=== PATIENT | female | born 1965 | race Two or more races ===

== ENCOUNTER 2019-11-30 15:11 | Inpatient (IN) | payer OTHER ==
[~2019-11-30] VITALS: Ht 160 cm; Wt 63.9 kg
[2019-11-30 16:06] LABS: Basophils # (auto) 0 uL; Eosinophils # (auto) 0 uL; Hemoglobin 11.8 g/dL (12.2-16.2); Monocytes # (auto) 0.5 uL
[2019-11-30 16:07] LABS: Hematocrit 35.8 % (36.0-46.0); Lymphocytes # (auto) 0.6 uL; Lymphocytes % (auto) 5.3 % (10.0-50.0); Mean Corpuscular Hgb Conc. 32.8 g/dL (32.0-36.0); Mean Corpuscular Volume 79.2 fL (80.0-100.0); Neutrophils # (auto) 9.4 uL; Neutrophils % (auto) 89.7 % (37.0-80.0); Platelet Count (auto) 163 10^3/uL (140-450); Red Blood Cells 4.52 10^6/uL (4.0-5.20); Red Cell Distribution Width 14.7 % (11.8-14.3); White Blood Cell 10.5 10^3/uL (4.4-10.8)
[2019-11-30 16:25] LABS: Albumin 2.9 g/dL (3.4-5.0); Anion Gap 11 (5-15); Blood Alcohol < 3.0 mg/dL (0-5); Blood Urea Nitrogen 17 mg/dL (7-18); Carbon Dioxide 23 mmol/L (21-32); Chloride 108 mmol/L (98-107); Glucose 132 mg/dL (74-106); Magnesium 1.4 mg/dL (1.6-2.6); Potassium 3.5 mmol/L (3.5-5.1); Sodium 142 mmol/L (136-145)
[2019-11-30 16:27] LABS: Alanine Aminotransferase 18 U/L (13-56); Aspartate Aminotransferase 17 U/L (15-37); BUN/Creatinine Ratio 28.3; GFR African American 134 mL/min; GFR Non-African American 111 mL/min
[2019-11-30 16:28] LABS: Acetaminophen 2.2 ug/mL (10-30); Salicylate < 1.7 mg/dL (2.8-20.0)
[2019-11-30 16:31] LABS: Alkaline Phosphatase 99 U/L (45-117); Bilirubin, Total 0.5 mg/dL (0.2-1.0); Total Protein 6.1 g/dL (6.4-8.2)
[2019-11-30 16:45] LABS: Urine Amorphous Crystal FEW /hpf (None Seen); Urine Bacteria NONE SEEN /hpf (None Seen); Urine Blood Negative /uL (Negative); Urine Hyaline Cast FEW /lpf (0 - 2); Urine Mucus FEW (None Seen); Urine Specific Gravity 1.028 (1.001-1.035); Urine WBC 2 /hpf (0 - 5)
[2019-11-30 17:04] LABS: Alcohol, Urine < 3.0 mg/dL (0-5); Amphetamine Screen, Urine NEGATIVE (NEGATIVE); Barbiturate Scree,Urine NEGATIVE (NEGATIVE); Benzodiazephine Screen, Urine POSITIVE (NEGATIVE); Cannabinoid Screen, Urine NEGATIVE (NEGATIVE); Cocaine Screen, Urine NEGATIVE (NEGATIVE); Opiate Scree,Urine NEGATIVE (NEGATIVE); Phencyclidine Screen, Urine NEGATIVE (NEGATIVE)
[2019-11-30] MEDS ORDERED: SODIUM CHLORIDE 0.9% 1,000 ML IVB ONE (17:32)
[2019-11-30] MEDS ORDERED: SUCCINYLCHOLINE CHLORIDE 20 MG/ML 10ML VIAL IV ONE ×3 (19:25→21:45)
[2019-11-30] MEDS ORDERED: ETOMIDATE (2MG/ML) 20ML VIAL IV ONE ×3 (19:25→21:45)
[2019-11-30] MEDS ORDERED: MIDAZOLAM DRIP 50 mg/50mL 50 ML IV ONE (20:07)
[2019-11-30] MEDS: MIDAZOLAM DRIP 50 mg/50mL 50 ML IV SCH (20:14)
[2019-11-30] MEDS ORDERED: MORPHINE SULF INJ 2 MG/ML SYRINGE 1ML IV PRN (21:00)
[2019-11-30] MEDS ORDERED: ONDANSETRON HCL 4 MG/2 ML VIAL IV PRN (21:00)
[2019-11-30] MEDS ORDERED: NITROGLYCERIN 0.4 MG SL TAB SL PRN (21:00)
[2019-11-30] MEDS ORDERED: PANTOPRAZOLE 40 MG/10 ML VIAL INJ IV ONE (21:00)
[2019-11-30 21:06] VITALS: BP 167/93
[2019-11-30] MEDS: SODIUM CHLORIDE 0.9% 1,000 ML IV SCH (21:27)
[2019-12-01] VITALS (86 sets, daily range): BP systolic 84–171; BP diastolic 50–103
[2019-12-01] MEDS ORDERED: ALBUMIN 5% 250 ML IV ONE (01:15)
--- NOTE | 2019-12-01 02:53 | NUR ---
REPORT RECEIVED FROM COLLAR WORKER. ADMITTED AN OVERDOSE ON SEROQUEL AND TRAZADONE. ONLY ON VERSED FOR SEDATION. ETT TO VENTILATOR. OGT TO LIS. STEPHENS IN PLACE. 2 PERIPHERAL IVS. MAINTENANCE IV RATE 80CC/HR.
[2019-12-01] MEDS ORDERED: ACETAMINOPHEN 650 MG RECT SUPP PR ONE (03:15)
--- NOTE | 2019-12-01 03:45 | NUR ---
PATIENT ARRIVED FROM THE ER. PLACED IN BED. PLACED ON BEDSIDE MONITOR. BP CYCLING Q 15. TEMP 99.7. HAND STONE POLISHER REPORTED THE TEMPERATURE WAS ELEVATED AND THAT SHE HAD JUST GIVEN TYLENOL. SINUS TACHYCARDIA 107, NO ECTOPY SBP 128. PATIENT'S EYES ARE OPEN AND MOVING EXTREMITIES. INCREASED THE VERSED FROM 4 MG TO 6MG/HR. ETT TO VENTILATOR. OGT SALEM SUMP TO LIS. SCDS ON. NO SKIN ISSUES. PERIPHERAL IV X2 SHOW NO REDNESS OR SWELLING. POISON CONTROL INVOLVED .QRS .08, QT .28
[2019-12-01] MEDS: MIDAZOLAM DRIP 50 mg/50mL 50 ML IV SCH (04:19)
--- NOTE | 2019-12-01 05:00 | NUR ---
ADMISSION PACKET WITH FAMILY
[2019-12-01] MEDS ORDERED: QUET50TA PO ×2 (05:21)
[2019-12-01] MEDS ORDERED: TRAZ-181 PO (05:21)
--- NOTE | 2019-12-01 06:00 | NUR ---
NSR WITH NO ECTOPY. HR BELOW 100. SBP DROPPED TO 88. DECREASED THE VERSED TO 4MG/HR. FOLLOWING THE VENTILATOR. NGT DRAINED 100CC OF GOLD/ORANGE COLOR LIQUID. SUCTIONED ETT FOR A SMALL AMOUNT OF CREAMY SECRETIONS WITH A BLOOD TINGE. REPOSITIONED TO HER LEFT SIDE.
--- NOTE | 2019-12-01 06:21 | NUR ---
SBP INCREASED AFTER VERSED CHANGE.
[2019-12-01 06:52] LABS: Basophils # (auto) 0 uL; Eosinophils # (auto) 0 uL; Monocytes # (auto) 0.6 uL; Red Blood Cells 4.08 10^6/uL (4.0-5.20); Red Cell Distribution Width 14.6 % (11.8-14.3); White Blood Cell 11.4 10^3/uL (4.4-10.8)
[2019-12-01 06:55] LABS: Basophils % (auto) 0.1 % (0.0-2.0); Hematocrit 31.8 % (36.0-46.0); Hemoglobin 10.5 g/dL (12.2-16.2); Lymphocytes # (auto) 0.5 uL; Lymphocytes % (auto) 4.3 % (10.0-50.0); Mean Corpuscular Hemoglobin 25.7 pg (28.0-32.0); Mean Corpuscular Hgb Conc. 32.9 g/dL (32.0-36.0); Monocytes % (auto) 5.3 % (0.0-12.0); Neutrophils # (auto) 10.3 uL; Neutrophils % (auto) 90.3 % (37.0-80.0); Platelet Count (auto) 133 10^3/uL (140-450)
[2019-12-01 07:08] LABS: Potassium 3.5 mmol/L (3.5-5.1)
[2019-12-01 07:10] LABS: BUN/Creatinine Ratio 19.2; Calcium 8.3 mg/dL (8.5-10.1)
--- NOTE | 2019-12-01 07:30 | NUR ---
OPENING NOTE Report received from Sherice WOMACK, care assumed. Initial physical assessment performed. No pain or distress noted at this time. Patient is intubated on ventilator, tolerating well. Patient withdrawals from painful stimuli. Versed for sedation in use. Pulses palpable bilaterally. SCD's on bilateral lower extremities. Lungs clear anteriorly. Abdomen is soft, nontender. OGT patent. See skin/wound assessment. Patient repositioned in bed, heels elevated. Bed locked in lowest position, alarms in place. Will continue to monitor.
--- NOTE | 2019-12-01 08:00 | NUR ---
SEIZURE PRECAUTIONS Patient assessed and determined to be at risk for seizure activity. Bed rails padded, parts fabricator remains on patient.
--- NOTE | 2019-12-01 08:18 | NUR ---
TEMPERATURE Oral temperature registering . Blankets removed and room temperature decreased. Rectal probe placed. Rectal temperature. Cooling measures initiated. Ice packed applied to trunk. Will continue to monitor.
--- NOTE | 2019-12-01 08:37 | NUR ---
VISITOR Patient son and grandson at bedside. Updated on patient status and plan of care. All questions and concerns addressed.
--- NOTE | 2019-12-01 09:26 | NUR ---
TEMPERATURE REASSESSMENT Rectal temperature now 99.0. Will continue to monitor.
[2019-12-01] MEDS: SODIUM CHLORIDE 0.9% 1,000 ML IV SCH ×2 (09:35→22:00)
[2019-12-01] MEDS: ENOXAPARIN SOD 40 MG/0.4 ML SYRINGE SC SCH (09:36)
[2019-12-01] MEDS: PANTOPRAZOLE 40 MG/10 ML VIAL INJ IV SCH (09:36)
--- NOTE | 2019-12-01 09:46 | NUR ---
POISON CONTROL Called for update on EKG and labs.
--- NOTE | 2019-12-01 11:00 | NUR ---
WOUND CARE CONSULT Wound care nurse at bedside for skin assessment.
--- NOTE | 2019-12-01 11:00 | NUR ---
WOUND CARE NOTE: Wound care in to see patient due intubation status putting patient to high risk for skin breakdown. Patient is 54 y/o female with admitting diagnosis of Toxic Encephalopathy. Patient is resting in ICU bed in Rm. 111. She's intubated, sedated and mechanically ventilated. Patient appears to be in no pain using Cortez Parmar Faces Pain Scale. Skin assessment done with the assistance of patient's nurse, VU Lim. No open wound noted other than intact linear redness to patient's Rt anterior thigh measuring 1x12cm, skin is blanchable, clean and dry. No pressure injury noted. Natasha care given and cleansed patient's Rt thigh with mild soap and water,patted dry and applied Z Guard cream as preventative per MD order.Patient's family at bedside reported that patient is active and independent prior this hospitalization. They reported that redness to R thigh could be from patient's wearing a "tight shorts". Repositioned patient for comfort facing her L t side, redistributed pressure points with pillows. Patient tolerated well. VU Lim at bedside. RECOMMENDATION: Nursing to continue with BID/PRN cleaning and application of Z Guard cream to sacral,buttocks and Rt thigh reddened area per MD order,frequent turning and repositioning schedule as condition permits,redistribute pressure points with pillows, continue monitoring by wound care while patient is mechanically ventilated. Addendum: 12/01/19 at 1518 by Lidia Pablo RN Amended: Links added.
--- NOTE | 2019-12-01 11:58 | NUR ---
MD VISIT: PCP at bedside assessing patient and speaking with family regarding patient status and plan of care. Chayo WOMACK at bedside to translate.
--- NOTE | 2019-12-01 12:00 | NUR ---
SEDATION VACATION Versed drip titrated off per MD request to assess neuro status.
--- NOTE | 2019-12-01 13:23 | NUR ---
MD VISIT: MANUFACTURER at bedside assessing patient and speaking with family regarding patients past medical history and discussing plan of care.
--- NOTE | 2019-12-01 14:05 | NUR ---
ORAL CARE Patient moved arms and facial grimacing with repositioning and oral care. Patient not attempting to move or open eyes on own without stimuli. Oral secretions pink/coles with foul odor. Oral care performed. Patient tolerated fair.
--- NOTE | 2019-12-01 15:22 | NUR ---
I faxed transfer order to [facility].
--- NOTE | 2019-12-01 16:30 | NUR ---
0086 12/01/19 Contacted insurance compliance analyst Gallo at [facility] and asked to speak with Administrative Aide Emily (no return call from earlier request). Per Gallo Diaz not available at this time, but she verified that they did receive the transfer order and they are working on it.
--- NOTE | 2019-12-01 16:58 | NUR ---
PT PLACED ON CPAP AT THIS TIME PS 8, PEEP5, 30% FIO2.
--- NOTE | 2019-12-01 17:30 | NUR ---
ROUNDING NOTE Patient tolerating Cpap trial. Patient moving arms up and down and grimacing but patient not opening eyes to verbal command. Vital signs stable at this time, Will cont
--- NOTE | 2019-12-01 17:47 | NUR ---
Respiratory note: PT PLACED ON CPAP MODE PER DR. DESAI ORDER. WEANING PARAMETERS OBTAINED. MIP:-11, VC: 364, LEAK: 75, ABG OBTAINED, DR. DESAI NOTIFIED OF RESULTS. PT WILL REMAIN ON CPAP MODE UNLESS RESPIRATORY DISTRESS IS NOTED PER DR. DESAI ORDER. PT APPEARS COMFORTABLE AT THIS TIME, RESPONSIVE TO VERBAL STIMULI BUT DOES NOT OPEN EYES. WILL CONTINUE TO MONITOR.
--- NOTE | 2019-12-01 18:26 | NUR ---
MD NOTIFIED MD aware of cpap trial ABG and weaning parameters. MD would like to administer Solumedrol and allow patient to wake up more. Patient may continue to be weaned later tonight once she is more awake. MD to be called. Family at bedside.
[2019-12-01] MEDS ORDERED: hydrALAZINE HCL 20 MG/ML VL IV PRN (18:45)
[2019-12-01] MEDS ORDERED: methylPREDNISolone SOD SUCC 40 MG/ML VL IV ONE (19:00)
--- NOTE | 2019-12-01 19:26 | NUR ---
REPORT Report given to Ang WOMACK, care endorsed.
--- NOTE | 2019-12-01 19:30 | NUR ---
Opening Shift Note Assumed care of patient in room 111. Patient is under no sedation and currently intubated. Ventilator in Cpap mode. Rest of physical assessment will be documented in interventions. No S/S of distress/SOB or pain. Will continue to monitor for changes Q1hr and PRN. Family currently at bedside and aware of POC for the night.
--- NOTE | 2019-12-01 20:30 | NUR ---
Family at bedside Updated on POC for the night and answered all questions.
[2019-12-02] VITALS (58 sets, daily range): BP systolic 108–152; BP diastolic 64–92
--- NOTE | 2019-12-02 00:23 | NUR ---
at bedside Answered all questions aware of POC.
[2019-12-02] MEDS: SODIUM CHLORIDE 0.9% 1,000 ML IV SCH ×2 (01:17→14:26)
--- NOTE | 2019-12-02 04:29 | NUR ---
Respiratory note: WEANING PARAMETERS OBTAINED, PT NOW OPENING EYES TO VERBAL STIMULI AND FOLLOWING COMMANDS. VC 323, NIF -13, LEAK 110. PT PLACED ON SIMV AT THIS TIME DUE TO ELEVATED BP. RN AT BEDSIDE. WILL ENDORSE POC TO DAYSHIFT.
--- NOTE | 2019-12-02 05:50 | NUR ---
Daughter at bedside Aware of POC which was communicated to throughout night.
--- NOTE | 2019-12-02 07:25 | NUR ---
OPENING NOTE Report received from Ang WOMACK, care assumed. Initial physical assessment performed. No pain or distress noted at this time. Afebrile. Patient is intubated on ventilator, tolerating well. Patient localizes to painful stimuli, but does not open eyes at this time or follow commands. Pulses palpable radial and pedal bilaterally. SCD's on bilateral lower extremities. Lungs clear anteriorly. Abdomen is soft, nontender. OGT patent. See skin/wound assessment. Patient repositioned in bed, heels elevated. Bed locked in lowest position, alarms in place. Will continue to monitor.
--- NOTE | 2019-12-02 09:12 | NUR ---
NEURO Patient opening eyes to verbal commands from daughter. Patient able to nod yes or no to simple questions. RT notified to start Cpap trial.
--- NOTE | 2019-12-02 09:25 | NUR ---
FAMILY Patient daughter and son at bedside. Family instructed to decrease stimulation to patient due to increased aggitation. Heart rate 140's sinus tachycardia. Patient coughing and gaging at this time. Patient returned to rest without stimulation, heart rate 120's. No other distress noted at this time.
--- NOTE | 2019-12-02 09:40 | NUR ---
Respiratory note: PT PLACED ON CPAP TRIAL. RN MADE AWARE. SPO2 97% ON 30%FIO2, HR 118, RR 21, BS CLEAR/DIMINISHED BILATERALLY. WILL CONTINUE TO MONITOR PT.
[2019-12-02] MEDS ORDERED: LEVOFLOXACIN 500MG 100 ML IV SCH (10:00)
[2019-12-02] MEDS ORDERED: methylPREDNISolone SOD SUCC 40 MG/ML VL IV SCH (10:00)
[2019-12-02 10:13] LABS: Basophils # (auto) 0 uL; Basophils % (auto) 0.1 % (0.0-2.0); Eosinophils # (auto) 0 uL; Hemoglobin 12.1 g/dL (12.2-16.2); Lymphocytes # (auto) 0.5 uL; Monocytes # (auto) 0.3 uL
[2019-12-02 10:15] LABS: Hematocrit 36.4 % (36.0-46.0); Lymphocytes % (auto) 3.9 % (10.0-50.0); Mean Corpuscular Hemoglobin 25.9 pg (28.0-32.0); Mean Corpuscular Hgb Conc. 33.2 g/dL (32.0-36.0); Mean Corpuscular Volume 77.9 fL (80.0-100.0); Monocytes % (auto) 2.1 % (0.0-12.0); Neutrophils # (auto) 12.7 uL; Neutrophils % (auto) 93.9 % (37.0-80.0); Platelet Count (auto) 153 10^3/uL (140-450); Red Blood Cells 4.67 10^6/uL (4.0-5.20); White Blood Cell 13.5 10^3/uL (4.4-10.8)
[2019-12-02 10:31] LABS: BUN/Creatinine Ratio 26.7; Calcium 8.8 mg/dL (8.5-10.1); Potassium 3.3 mmol/L (3.5-5.1)
[2019-12-02] MEDS: PANTOPRAZOLE 40 MG/10 ML VIAL INJ IV SCH (11:11)
[2019-12-02] MEDS: ENOXAPARIN SOD 40 MG/0.4 ML SYRINGE SC SCH (11:11)
--- NOTE | 2019-12-02 11:34 | NUR ---
NEURO Attempting to arouse patient to obtained weaning parameters. Patient not opening eyes to verbal and even to painful stimuli. Patient is tolerating Cpap mode well. Oxygen saturations 97%. notified.
--- NOTE | 2019-12-02 11:37 | NUR ---
1130 12/02/19 Contacted call center analyst Chayo at [facility] and requested that authorization be provided for patient's continued stay. Per Chayo the assigned hospice case manager today is Emily and she would have to be the one to speak with me about authorization. I let Chayo know that we had requested transfer yesterday for this patient, they verified that they received the order. I requested that Chayo have Remote Broadcast Engineer Emily call me regarding authorization request.
--- NOTE | 2019-12-02 11:41 | NUR ---
MD CADE Spoke with regarding low potassium levels. Orders obtained for replacement.
[2019-12-02] MEDS ORDERED: POTASSIUM EFFERVESENT TAB 25 MEQ PO ONE (11:45)
--- NOTE | 2019-12-02 13:37 | NUR ---
Transfer order faxed to [facility].
--- NOTE | 2019-12-02 14:28 | NUR ---
ROUNDING NOTE Patient moving feet and hands intermittently to commands. Patient still not opening eyes yet. Rectal temperature 99.5, ice packs applied to trunk. Will continue to monitor.
--- NOTE | 2019-12-02 17:05 | NUR ---
Respiratory note: WEANING PARAMETERS NIF -31, LEAK 197, RSBI 48, UNABLE TO OBTAIN A VC DUE TO PT NO BEING AWAKE ENOUGH. VU DESAI, WELL DR DESAI IS MADE AWARE. VERBAL ORDER GIVEN TO EXTUBATE. WILL ENDORSE PT STATUS TO DIRECTOR OF ARCHIVES.
--- NOTE | 2019-12-02 17:10 | NUR ---
MD UPDATE Spoke with on patients neuro status. Patient spontaneously wakes up. Attempted to pull at ETT twice. Patient did have one episode of agitation and consistent eye contact after suctioning by RT. Patient moving feet more consistently. Patient still on Cpap mode, tolerating well, no distress noted. MD ordered for patient to be extubated.
--- NOTE | 2019-12-02 17:36 | NUR ---
SKIN/PHOTOGRAPH Red, raised area on right lateral foot. New incident of unknown etiology. Photograph taken and Optifoam placed over site to prevent further irritation.
--- NOTE | 2019-12-02 17:55 | NUR ---
Respiratory note: EXTUBATED PT AND PLACED ON 30% COOL AEROSOL. NO STRIDOR HEARD, HR 123, RR 23, SPO2 98%. FAMILY AND RN AT BEDSIDE.
--- NOTE | 2019-12-02 17:55 | NUR ---
PATIENT EXTUBATED BY RT Patient extubated by RT per order. Patient placed on cool mist mask at 30% Fio2. Oxygen saturation 99%. No shortness of breath or stridor noted. Patient resting, all other vital signs stable.
--- NOTE | 2019-12-02 19:14 | NUR ---
REPORT Report given to Ang WOMACK, care endorsed.
--- NOTE | 2019-12-02 19:20 | NUR ---
Opening Shift Note Assumed care of patient in room 111. Patient is awake. Connected to n/c at 2 L. No S/S of distress/SOB or pain. Family at bedside aware of POC.
--- NOTE | 2019-12-02 21:24 | NUR ---
trimming [place] [phone] Jacqueline. Given information on patient transfer.
--- NOTE | 2019-12-02 21:51 | NUR ---
report given to RN at [facility] RN, ICU.
--- NOTE | 2019-12-02 22:58 | NUR ---
Case economics analyst Called on the phone spoke with case economics analyst and ETA time range originally is [phone] to [phone].
[2019-12-03] VITALS: BP 133/84
[2019-12-03 00:15] VITALS: BP 139/83
--- NOTE | 2019-12-03 00:39 | NUR ---
[facility] at bedside
--- NOTE | 2019-12-03 00:56 | NUR ---
OFF UNIT TRANSPORTED BY [facility] [place]. VITAL SIGNS ON PAPER CHART.
== END 2019-12-03 00:56 | disposition short-term general hospital (02) | DRG 917 ==
LOC: ER 15:11 → EDBD 15:11 → TELE 15:12 → ICU WEST 12-01 03:41
PROVIDERS: ADMIT Nurse Practitioner; ATTEND Internal Medicine
PROC: 0BH17EZ Insertion of Endotracheal Airway into Trachea, Via Natural or Artificial Opening (ICD-10-PCS; principal; 2019-11-30)
PROC: 5A1945Z Respiratory Ventilation, 24-96 Consecutive Hours (ICD-10-PCS; 2019-11-30)
DX: T43.212A Poisoning by selective serotonin and norepinephrine reuptake inhibitors, intentional self-harm, initial encounter (principal); G92 Toxic encephalopathy; J96.02 Acute respiratory failure with hypercapnia; E87.2 Acidosis; E44.0 Moderate protein-calorie malnutrition; D64.9 Anemia, unspecified; F20.9 Schizophrenia, unspecified; B96.89 Other specified bacterial agents as the cause of diseases classified elsewhere; B95.61 Methicillin susceptible Staphylococcus aureus infection as the cause of diseases classified elsewhere; F41.9 Anxiety disorder, unspecified; T43.592A Poisoning by other antipsychotics and neuroleptics, intentional self-harm, initial encounter; D72.829 Elevated white blood cell count, unspecified; Y92.89 Other specified places as the place of occurrence of the external cause; Z68.25 Body mass index [BMI] 25.0-25.9, adult; Z79.899 Other long term (current) drug therapy
CPT/HCPCS: 31500; 36415; 36600; 70450; 71045; 80048; 80053; 80307; 80320; 80329; 81001; 81025; 82805; 82962; 83735; 84443; 84484; 85025; 87040; 87070; 87077; 87081; 87186; 87205; 94002; 94003; 99291; C9113; G0378; J0330; J1956; J2250